=== PATIENT | male | born 1975 | race Caucasian/White ===

== ENCOUNTER 2020-03-18 13:56 | Emergency (ER) | payer OTHER ==
[~2020-03-18 13:56] MED LIST: AMOXICILLIN875 MG PO; IBUPROFEN800 MG PO; MOTRIN600 MG PO; NORCO 5-325 TA1 EACH PO; VIBRAMYCIN100 MG PO
[2020-03-18 15:04] LABS: BILIRUBIN NEGATIVE (NEGATIVE); BLOOD NEGATIVE Ery/uL (NEGATIVE); CLARITY CLEAR (CLEAR); COLOR YELLOW (YELLOW); GLUCOSE (U) NORMAL (NORMAL); LEUKOCYTES NEGATIVE Leu/uL (NEGATIVE); NITRITE NEGATIVE (NEGATIVE); PROTEIN NEGATIVE (NEGATIVE); UROBILINOGEN 0.2 mg/dL (0.2-1.0); pH 5.5 (5.0-9.0)
[2020-03-18 15:39] LABS: EOSINOPHIL 2.5 % (0-5); HCT 47.3 % (42.0-52.0); MCH 31.4 pg (25.0-31.0); MCHC 33.8 g/dL (32.0-36.0); MCV 92.7 fL (78.0-100.0); MONOCYTE 8.2 % (0-12); MPV 9.7 fL (6.0-9.5); NEUTROPHIL 61.8 % (41-80); NRBC 0; PLT 355 K/uL (150-400); RDW 12.1 % (11.5-14.0); WBC 10.5 K/uL (4.0-10.5)
[2020-03-18 16:26] LABS: ALBUMIN 3.5 g/dL (3.4-5.0); BILIRUBIN - TOTAL 0.2 mg/dL (0.2-1.0); BUN/CREAT RATIO (CALC) 14.5 RATIO; CREATININE 0.83 mg/dL (0.67-1.17); GLOBULIN (CALCULATION) 3.9 g/dL; POTASSIUM 4.4 mmol/L (3.5-5.1); TOTAL PROTEIN 7.4 g/dL (6.4-8.2)
[2020-03-18 17:11] LABS: CORONAVIRUS 2019 SARS-COV-2 NEGATIVE (NEGATIVE); INFLUENZA A NAA NEGATIVE (NEGATIVE)
[2020-03-18] MEDS ORDERED: PRILOSEC20 MG PO (18:05)
== END 2020-03-18 18:25 | disposition home or self-care (01) ==
LOC: FER 13:56
PROVIDERS: Emergency Medicine; Nurse Practitioner Family
DX: R10.12 Left upper quadrant pain (principal); R10.32 Left lower quadrant pain; Z88.0 Allergy status to penicillin; Z20.822 Contact with and (suspected) exposure to COVID-19
CPT/HCPCS: 36415; 80053; 81003; 85025; J1885; J7030; Q9967; U0002

== ENCOUNTER 2020-09-19 18:12 | Emergency (ER) | payer OTHER ==
[~2020-09-19 18:12] MED LIST changes: +PRILOSEC20 MG PO
[2020-09-19] MEDS ORDERED: MEDROL 4MG DOSEP4 MG PO (20:10)
== END 2020-09-19 20:35 | disposition home or self-care (01) ==
LOC: FER 18:12
DX: T78.40XA Allergy, unspecified, initial encounter (principal); S39.012A Strain of muscle, fascia and tendon of lower back, initial encounter; X50.9XXA Other and unspecified overexertion or strenuous movements or postures, initial encounter
CPT/HCPCS: 96372; 99282; J1100; J1885

== ENCOUNTER 2021-06-06 20:44 | Emergency (ER) | payer OTHER ==
[~2021-06-06 20:44] MED LIST changes: +MEDROL 4MG DOSEP4 MG PO
[2021-06-06] MEDS ORDERED: SILVADENE20 G1 TOP (23:33)
[2021-06-06] MEDS ORDERED: OXYCODONE-ACET1 EAC1 PO (23:33)
== END 2021-06-07 00:03 | disposition home or self-care (01) ==
LOC: FER 20:44
DX: T21.22XA Burn of second degree of abdominal wall, initial encounter (principal); T31.0 Burns involving less than 10% of body surface; F17.210 Nicotine dependence, cigarettes, uncomplicated; Z23 Encounter for immunization; Z28.311 Partially vaccinated for COVID-19; Z88.0 Allergy status to penicillin; X08.8XXA Exposure to other specified smoke, fire and flames, initial encounter; Y92.009 Unspecified place in unspecified non-institutional (private) residence as the place of occurrence of the external cause
CPT/HCPCS: 90471; 90715; J1170; J2405; J7030

== ENCOUNTER 2021-06-11 02:54 | Emergency (ER) | payer OTHER ==
[~2021-06-11 02:54] MED LIST changes: +OXYCODONE-ACET1 EAC1 PO; +SILVADENE20 G1 TOP
[2021-06-11 03:37] LABS: BASOPHIL 0.9 % (0-2); EOSINOPHIL 2.8 % (0-5); HCT 40.2 % (42.0-52.0); HGB 13.7 g/dl (13.2-18.0); LYMPHOCYTE 26.2 % (15-48); MCH 31.5 pg (25.0-31.0); MCHC 34.1 g/dL (32.0-36.0); MCV 92.4 fL (78.0-100.0); MONOCYTE 11.4 % (0-12); MPV 9.1 fL (6.0-9.5); NEUTROPHIL 57.6 % (41-80); NRBC 0; PLT 250 K/uL (150-400); RBC 4.35 M/uL (4.70-6.00); WBC 9.4 K/uL (4.0-10.5)
[2021-06-11 03:57] LABS: ALBUMIN 3.5 g/dL (3.4-5.0); BILIRUBIN - TOTAL 0.2 mg/dL (0.2-1.0); BUN/CREAT RATIO (CALC) 22.1 RATIO; CREATININE 0.77 mg/dL (0.67-1.17); GLOBULIN (CALCULATION) 3.7 g/dL; TOTAL PROTEIN 7.2 g/dL (6.4-8.2)
[2021-06-11] MEDS ORDERED: PERCOCET 5-3251 EACH PO (04:06)
[2021-06-11] MEDS ORDERED: SILVADENE20 GM TOP (04:06)
[2021-06-11] MEDS ORDERED: BACTRIM DS TAB1 EACH PO (04:06)
[2021-06-12 05:10] LABS: HIV AB/P24 AG SCREEN Non Reactive (Non Reactive)
== END 2021-06-11 06:45 | disposition home or self-care (01) ==
LOC: FER 02:54
PROVIDERS: Internal Medicine
DX: J02.9 Acute pharyngitis, unspecified (principal); E87.6 Hypokalemia; T21.22XA Burn of second degree of abdominal wall, initial encounter; F17.210 Nicotine dependence, cigarettes, uncomplicated; Z88.0 Allergy status to penicillin; X08.8XXA Exposure to other specified smoke, fire and flames, initial encounter
CPT/HCPCS: 36415; 71045; 80053; 85025; 87389; 96372; J0696; J1100; J1170; J3475; J3480; J7050; J7120

== ENCOUNTER 2021-08-26 00:55 | Emergency (ER) | payer OTHER ==
[~2021-08-26 00:55] MED LIST changes: +BACTRIM DS TAB1 EACH PO; +PERCOCET 5-3251 EACH PO; +SILVADENE20 GM TOP
[2021-08-26] MEDS ORDERED: NORCO 5-325 TA1 EACH PO (02:15)
== END 2021-08-26 02:35 | disposition home or self-care (01) ==
LOC: FER 00:55
DX: S62.317A Displaced fracture of base of fifth metacarpal bone, left hand, initial encounter for closed fracture (principal); F17.200 Nicotine dependence, unspecified, uncomplicated; W22.8XXA Striking against or struck by other objects, initial encounter; Y92.009 Unspecified place in unspecified non-institutional (private) residence as the place of occurrence of the external cause
CPT/HCPCS: 73130